=== PATIENT | female | born 1995 | race Caucasian/White ===

== ENCOUNTER 2021-10-06 12:36 | Outpatient (CLI) | payer BC ==
[2021-10-06] MEDS ORDERED: LIDOCAINE 1%, 20 ML MDV 20 ML ONE (14:14)
== END 2021-10-06 14:59 | disposition home or self-care (01) ==
LOC: SRD 12:36
PROVIDERS: ATTEND Specialist
DX: N92.6 Irregular menstruation, unspecified (principal); N83.202 Unspecified ovarian cyst, left side; N88.8 Other specified noninflammatory disorders of cervix uteri
CPT/HCPCS: 58340; 74740; 76830; 76857; C1751; J2001; Q9967

== ENCOUNTER 2021-10-21 10:00 | Outpatient (CLI) | payer BC, SELFPAY | END 2021-10-21 11:00 | disposition home or self-care (01) | LOC: SLB 10:00 → EDSTATUS 10-26 09:15 | PROVIDERS: ATTEND Specialist | DX: Z01.812 Encounter for preprocedural laboratory examination (principal); Z20.822 Contact with and (suspected) exposure to COVID-19; D64.9 Anemia, unspecified; R93.89 Abnormal findings on diagnostic imaging of other specified body structures; R93.5 Abnormal findings on diagnostic imaging of other abdominal regions, including retroperitoneum | CPT/HCPCS: U0003 ==

== ENCOUNTER 2021-11-02 06:51 | Day surgery (SDC) | payer BC, SELFPAY ==
[~2021-11-02] VITALS: Ht 167.6 cm; Wt 86.2 kg
[2021-11-02 07:55] LABS: HCG,QUAL RESULT NEGATIVE (NEGATIVE)
[2021-11-02 08:00] LABS: BILIRUBIN,URINE NEGATIVE (NEGATIVE); CLARITY/URINE CLEAR (CLEAR); COLOR,URINE YELLOW (YELLOW); GLUCOSE,URINE NEGATIVE (NEGATIVE); KETONES,URINE NEGATIVE (NEGATIVE); LEUKOCYTE ESTERASE ,URINE NEGATIVE (NEGATIVE); NITRITE, URINE NEGATIVE (NEGATIVE); PH,URINE 6.5 (5.0-8.0); PROTEIN URINE NEGATIVE (NEGATIVE); UROBILINOGEN,URINE 0.2 (0.2-1.0)
[2021-11-02 08:01] LABS: BLOOD, URINE TRACE (NEGATIVE)
[2021-11-02 08:16] LABS: BACTERIA,URINE FEW /HPF (None Seen); MUCUS,URINE 1+ /LPF (None Seen); RBC,URINE 0-3 /HPF (0-3); WBC,URINE 0-3 /HPF (0-3)
[2021-11-02 08:24] LABS: BASOPHILS % (AUTO) 0.4 % (0.0-2.0); EOSINOPHILS # (AUTO) 0.1 K/uL (0.0-0.4); EOSINOPHILS % (AUTO) 1.2 % (0.0-4.0); HEMATOCRIT 38.7 % (36-48); HEMOGLOBIN 12.7 g/dL (12.0-16.0); LYMPHOCYTES # (AUTO) 2.6 K/uL (1.0-5.5); LYMPHOCYTES % (AUTO) 35.1 % (20.5-51.5); MEAN CORPUSCULAR HEMOGLOBIN 25 pg (27-31); MEAN CORPUSCULAR HGB CONC 33 % (32-36); MEAN CORPUSCULAR VOLUME 77 fL (79.0-98.0); MONOCYTES # (AUTO) 0.5 K/uL (0.0-1.0); MONOCYTES % (AUTO) 6.5 % (1.7-9.3); NEUTROPHILS # (AUTO) 4.2 K/uL (1.8-7.7); NEUTROPHILS % (AUTO) 56.8 % (40.0-70.0); PLATELET COUNT (AUTO) 277 K/uL (130-430); RED BLOOD CELL COUNT(AUTO) 5.03 MIL/uL (4.2-6.2); RED CELL DISTRIBUTION WIDTH 14.3 % (9.0-15.0); WHITE BLOOD COUNT (AUTO) 7.3 K/uL (4.8-10.8)
[2021-11-02] MEDS ORDERED: CEFAZOLIN SOD 1 GM in D5W 50 ML IV ONE (09:00)
[2021-11-02] MEDS ORDERED: MIDAZOLAM HCL 2 MG/2 ML VIAL (VERSED) IVP PRN (09:45)
[2021-11-02] MEDS ORDERED: METOCLOPRAMIDE HCL 10 MG/2 ML VIAL IVP PRN (09:45)
[2021-11-02] MEDS ORDERED: HYDROmorphone 1 MG/ML INJ. CARTRIDGE IVP PRN (09:45)
[2021-11-02] MEDS ORDERED: LR 1,000 ML IV SCH (09:45)
[2021-11-02] MEDS ORDERED: MEPERIDINE HCL/PF 25 MG/ML DISP.SYRIN IVP PRN (09:45)
[2021-11-02] MEDS ORDERED: ONDANSETRON HCL 4 MG/2 ML VIAL IVP PRN (10:00)
[2021-11-02] MEDS ORDERED: OXYCODONE/ACETAMINOPHEN 5-325 TABLET PO PRN ×2 (10:00)
[2021-11-02] MEDS ORDERED: HYDROcodone/ACETAMIN 5-325 MG TAB (NORCO/ VICODIN) PO PRN (10:00)
[2021-11-02] MEDS ORDERED: HYDROmorphone 1 MG/ML INJ. CARTRIDGE ONE (10:28)
[2021-11-02] MEDS: HYDROmorphone 1 MG/ML INJ. CARTRIDGE IVP PRN ×2 (10:28→10:30)
[2021-11-02 11:00] VITALS: BP_SYST 126
== END 2021-11-02 12:15 | disposition home or self-care (01) ==
LOC: SDS 06:51 → SMU 06:52 → SDS 12:15
PROVIDERS: ATTEND Specialist
DX: N92.6 Irregular menstruation, unspecified (principal); R93.5 Abnormal findings on diagnostic imaging of other abdominal regions, including retroperitoneum; N73.6 Female pelvic peritoneal adhesions (postinfective); Z20.822 Contact with and (suspected) exposure to COVID-19
CPT/HCPCS: 36415; 58340; 58558; 74740; 81000; 84703; 85025; 87426; J0690; J1170; J7060; Q9967; U0003; 76000

== ENCOUNTER 2022-06-30 11:40 | Outpatient (CLI) | payer BC ==
[2022-06-30] MEDS ORDERED: iohexoL 180 mgI/mL, 20 ML VIAL IT ONE (12:29)
[2022-06-30] MEDS ORDERED: iohexoL 300 mgI/mL, 150 ML INFUS..BTL IV ONE (12:30)
== END 2022-06-30 20:06 | disposition home or self-care (01) ==
LOC: SRD 11:40
PROVIDERS: ATTEND Specialist
DX: N97.9 Female infertility, unspecified (principal); N73.6 Female pelvic peritoneal adhesions (postinfective); N97.1 Female infertility of tubal origin
CPT/HCPCS: 74740; 58340; Q9967; C1751; Q9965